=== PATIENT | female | born 1985 | race Caucasian/White ===

== ENCOUNTER 2017-02-11 16:34 | Inpatient (IN) | payer BC, OTHER ==
[~2017-02-11] VITALS: Ht 167.6 cm; Wt 90.7 kg
[2017-02-11 17:12] LABS: HEMOGLOBIN 10.2 gm/dl (12.3-15.3); RED BLOOD COUNT 3.7 M/UL (4.00-5.10); WHITE BLOOD COUNT 11.4 K/UL (4.5-11.0)
[2017-02-13 03:01] LABS: HEMOGLOBIN 9.3 gm/dl (12.3-15.3)
[2017-04-01] MEDS ORDERED: SPRINTEC 28 DA1 EACH PO (07:08)
[2017-04-01] MEDS ORDERED: NORCO 7.5-3251 EACH PO (09:35)
[2017-04-01] MEDS ORDERED: COLACE 100MG C100 MG PO (09:37)
== END 2017-02-13 16:21 | disposition home or self-care (01) | DRG 775 ==
LOC: GENOP 16:34 → OB 16:41
PROVIDERS: Obstetrics & Gynecology; ADMIT Obstetrics & Gynecology
PROC: 10907ZC Drainage of Amniotic Fluid, Therapeutic from Products of Conception, Via Natural or Artificial Opening (ICD-10-PCS; principal; 2017-02-11)
PROC: 0U7C7ZZ Dilation of Cervix, Via Natural or Artificial Opening (ICD-10-PCS; principal; 2017-02-11)
PROC: 10E0XZZ Delivery of Products of Conception, External Approach (ICD-10-PCS; 2017-02-12)
PROC: 0U7C7ZZ Dilation of Cervix, Via Natural or Artificial Opening (ICD-10-PCS; 2017-02-12)
PROC: 3E033VJ Introduction of Other Hormone into Peripheral Vein, Percutaneous Approach (ICD-10-PCS; 2017-02-12)
PROC: 0KQM0ZZ Repair Perineum Muscle, Open Approach (ICD-10-PCS; 2017-02-12)
DX: O99.02 Anemia complicating childbirth (principal); D64.9 Anemia, unspecified; O75.89 Other specified complications of labor and delivery; Z3A.39 39 weeks gestation of pregnancy; Z37.0 Single live birth; O70.1 Second degree perineal laceration during delivery; O69.81X0 Labor and delivery complicated by cord around neck, without compression, not applicable or unspecified; Z82.49 Family history of ischemic heart disease and other diseases of the circulatory system; Z80.1 Family history of malignant neoplasm of trachea, bronchus and lung
CPT/HCPCS: 36415; 51702; 81001; 82800; 85014; 85018; 85025; J2590; J2795; J3010; J3430; J7120